=== PATIENT | female | born 1965 | race Caucasian/White ===

== ENCOUNTER → 2020-07-28 14:56 | Outpatient (CLI) | payer OTHER, SELFPAY ==
[2020-07-28 16:38] LABS: COVID19 -Nasal RAPID Negative (Negative)
== END ==
PROVIDERS: Visit Provider Nurse Practitioner
DX: Z11.59 Encounter for screening for other viral diseases (principal)
CPT/HCPCS: 87635

== ENCOUNTER 2020-07-30 06:06 | Day surgery (SDC) | payer OTHER, SELFPAY ==
[2020-07-24 08:51] VITALS: BMI 34.7
[2020-07-30] VITALS (17 sets, daily range): BP systolic 98–124; BP diastolic 45–78; PULSE 59–82; RESP 8–18; TEMP 36–36.8; O2SAT 94–99; BMI 35.6
--- NOTE | 2020-07-30 06:00 | DI.RAD.S_ITS ---
PROCEDURE: XR KNEE LT 1TO2V INDICATIONS: postoperative left knee TECHNIQUE: 2 view(s) of the knee acquired. COMPARISON: None. FINDINGS: Bones: Patient is status post knee joint arthroplasty. Hardware components are in expected positions. Visualized bony structures are intact. Soft tissues: Overlying postoperative changes are noted. IMPRESSION: Expected postoperative appearance Dictated by: Reinaldo Dobbs M.D. on 07/30/2020 at 12:11 Approved by: Reinaldo Dobbs M.D. on 07/30/2020 at 12:12
[2020-07-30] MEDS: LACTATED RINGERS 1,000 ML 42 ML IV ×2 (07:00→10:09)
[2020-07-30] MEDS: CELECOXIB 200 MG CAPSULE PO (07:03)
[2020-07-30] MEDS: PREGABALIN 75 MG CAPSULE PO (07:03)
[2020-07-30] MEDS: ACETAMINOPHEN 325 MG TABLET 975 MG PO (07:03)
--- NOTE | 2020-07-30 07:35 | PM.PREOP ---
Pre-operative Note COVID-19 COVID-19 status: Negative Result date/Date tested (Pos, Neg/Pending): 07/28/20 Interval Note History & Physical reviewed/Exam performed by Physician: Yes Changes to H&P: No H&P completed within 30 days and has changed as indicated here:: Plan for L TKA
[2020-07-30] MEDS: CEFAZOLIN 2 GM/100 ML FROZ.PIGGY IV ×2 (07:54→17:47)
--- NOTE | 2020-07-30 08:26 | PM.PROC.1 ---
Procedures Date/Time Date of procedure: 07/30/20 Time of procedure: 07:40 General Procedure description: Ultrasound guided adductor canal nerve block for post op pain control after left total knee replacement by Dr. Pemberton. Risk and benefits of procedure discussed with patient. ASA monitoring applied to patient. O2 given via nasal cannula. 2 mg Versed and 50 mcg fentanyl given for procedural sedation. Skin site was prepped with chlorhexidine and allowed to fully dry. Sterile gloves, mask, hat and probe cover were used to maintain sterility. 2% lidocaine and 30ga needle was used to make a small skin wheal at needle insertion site. Under ultrasound guidance, a 21ga 100mm Pajunk needle was directed into the adductor canal near femoral artery and saphenous nerve at the level of mid thigh. Patient reported no parasthesias. After negative aspiration, 20 mL 0.5% ropivicaine and 10mg dexamethasone were injected around saphenous nerve. Patient tolerated procedure well.
--- NOTE | 2020-07-30 08:29 | SUR.OPER ---
Supine on padded OR bed. Pillow under head, arms secured on padded armboards <90 degree abduction. Safety belt across torso. Non-operative leg secured with tape over blanket over lower leg. Operative leg controlled by surgeon. Foam padded brace at thigh of operative leg. Foam padded roll bar in place under operative leg's calf with folded bath blanket under heel to make level with roll bar.
[2020-07-30] MEDS: MORPHINE 4 MG/ML INJ INJ (08:35)
[2020-07-30] MEDS: TRANEXAMIC ACID 1,000 MG VIAL 2000 MG INJ ×2 (08:35→09:43)
[2020-07-30] MEDS: KETOROLAC 30 MG/ML VIAL IV (08:35)
[2020-07-30] MEDS: ROPIVACAINE 0.5% PF 5 MG/ML 20ML VIAL 60 ML INJ (08:36)
--- NOTE | 2020-07-30 09:59 | P.OP_ITS ---
Operative Date/Time/Diagnoses Date of procedure: 07/30/20 Time of procedure: 09:59 Pre-op diagnosis: left knee OA Post-op diagnosis: same Procedure & Clinicians Procedure: LEFT TKA Same procedure as scheduled: Yes Indications: Left knee OA resistant to further conservative care Surgeon: Piyush Pemberton Morgue Keeper: Kristin Amanda Anesthesia Type: General and Spinal Operative Notes Findings: Left knee OA with mild varus deformity Closure Type: primary Specimen(s): none sent Prosthetic devices, grafts, tissues, transplants, or devices: Richardson Nephew Journey 2 size 4 left cruciate retaining femoral component Size 4 left tibial base plate 32 mm oval button Size 3-4 left 11 mm thick Journey 2 XLPE deep dish Estimated Blood Loss (mL): 100 Tourniquet time (min): 65 Procedure in detail: Patient was met in the preoperative holding area where the site and side of surgery were marked by . Informed consent had been reviewed and signed in clinic but was also reviewed the preoperative holding area and all last minute questions were answered. Patient was then brought back in the operating room where she received a spinal anesthetic. She was induced under general anesthesia and placed supine on operating room bed. Bony prominences were well padded. The left thigh then had a nonsterile tourniquet placed. Followed by standard prepping and draping the left lower extremity. A surgical time-out was performed verifying the site and side of surgery as well as the name of the patient. A linear incision was made over the left knee in line with the long axis of the extremity. Skin incision was made with a 10. Blade followed by dissection through the fat layer with electrocautery. Medial lateral flaps were then elevated with a new 10. Blade. The medial parapatellar arthrotomy was then marked out and a medial parapatellar arthrotomy was performed with a 10. Blade. The patella was then everted Hoffa's fat pad was removed the lateral meniscus was also removed. A medial peel was then performed Paola's line was then marked with the electrocautery and a drill hole was then placed into the end of the femur approximately 1 cm anterior to PCL footprint. The drill was then used to enter the tibial canal as well. A left 5 degree cutting jig was then placed onto the left knee using intramedullary edwin. Cut was then made in the neutral position. A small portion of the medial cortex then chipped off during the bone cut this did not involve a significant portion of the MCL origin. This was then removed with electrocautery. The intramedullary guide for the tibia was then placed and drop edwin were used to verify our positioning in varus valgus. Tibia was then cut and the knee was brought into full extension and a static 10 mm spacer block was placed with full extension and good mediolateral stability. This was then removed the knee was brought back into flexion and a gap payroll human resources assistant was then used to make our drill holes for our femoral cutting jig. The payroll human resources assistant was then removed and the Sizer block was then placed sized to a size 4 and verify that we were at approximately 3? of external rotation based off this payroll human resources assistant block. Size 4 left femur cutting block was then placed on the femur and pinned in place. The 5 1 cutting block was then cut with oscillating saw at in sequential fashion. No notching occurred. The jig was then removed and the bony fragments were then also removed a size 4 femoral trial was then placed followed by size 4 tibial trial component with a 10 mm thick CR polyethylene. Knee had good balance through trial range of motion although looks like she may hyperextend a little bit with a size 10 mm thick polyethylene. The patella was then cut with a freehand saw cut and sized to a 32 mm trial. This was then placed and the knee was brought through range of motion with good patellar tracking. The trial components were then removed local anesthetic was infiltrated throughout the soft tissues of the knee. Bony fragments were then used to plug the tibial and femoral canal holes. Pulse lavage was then used to thoroughly irrigate the knee as well as the cut surfaces of the bone. Cement was then finger packed onto the cut surface of the tibia as well as finger packed into the tibial keel hole. Cement was also placed on the undersurface of the tibial component this was then malleted into place and excess cement was removed. Cement was then finger packed onto the cut surface of the femur with exception of the posterior condyle cut. Cement was placed on the feet of the femoral component this was then malleted into place and excess cement was removed. A size 10 mm thick CR trial was then placed and the knee was brought into full extension and the foot was held in internal rotation as the cement cured. Cement was then placed on the cut surface of the patella as well as between the lugs of the patellar button. This was then pressed into place and held with a clamp until fully cured. Betadine solution was then placed into the wound allowed to sit while the cement fully cured. The Betadine was then pulse lavage away with copious normal saline the tourniquet was let down the patellar clamp was removed. All excess cement was chipped away with a osteotome and mallet. We then trialed with a size 11 mm thick polyethylene which gave excellent stability as well as full extension. A size 3-4 left polyethylene with a deep dish was then selected and placed verifying the tabs were engaged both medial and laterally. The knee was then irrigated a final time electrocautery was used to gain hemostasis the medial parapatellar arthrotomy was closed using 1. Vicryl interrupted fashion followed by running Quill suture followed by a running fat suture with a 1. Vicryl followed by 2-0 Vicryl in the subcutaneous layer and 3-0 Stratafix. Dermabond was then placed as well as an Aquacel dressing. Complications: none Post-operative Condition: stable Disposition: PACU Plan for aftercare: 24 hours post-op abx, WBAT LLE, ASA 81 mg BID for 6 weeks
[2020-07-30] MEDS: METOCLOPRAMIDE 10 MG/2 ML INJ IV (10:25)
[2020-07-30] MEDS: fentaNYL 100 MCG/2 ML INJ IV (10:35)
[2020-07-30] MEDS: SCOPOLAMINE 1 PATCH TOP (10:59)
[2020-07-30] MEDS: ONDANSETRON 4 MG/2 ML INJ IV ×2 (11:00→11:45)
--- NOTE | 2020-07-30 11:16 | SUR.PHASEI ---
Report called up to floor, checo Acuna occupied at this time but able to give CHECO Rodriguez report. Pt transferred up to floor by checo Arciniega in stable condition with pain relieved to tolerable level and nausea better.
--- NOTE | 2020-07-30 11:25 | PC.NURSE ---
Day shift: Pt on unit at approx 1120. She is A&Ox3. EDISON wrap is CDI. PPP but can't wiggle toes at this time but sensation present. VS WNL. C/o nausea and not feeling well. Spouse (Tone) in room for support. Oriented to room and call light. Call light in reach. Agrees to not get OOB w/o help from staff. Bed alarm is on. No drains and no Collins.
[2020-07-30] MEDS: LACTATED RINGERS 1,000 ML 100 ML IV (11:50)
[2020-07-30] MEDS: OXYCODONE IR 10 MG TABLET PO ×3 (13:06→23:20)
[2020-07-30] MEDS: ACETAMINOPHEN 325 MG TABLET 650 MG PO ×2 (13:44→20:32)
[2020-07-30 15:27] LABS: Add Manual Diff / Slide Review NO; Basophils Absolute Auto 0 /uL (0-100); Basophils Percent Auto 0.1 % (0-2); Eosinophils Absolute Auto 0 /uL (0-450); Hemoglobin 12.9 g/dL (12.0-16.0); Lymphocytes Absolute Auto 500 /uL (1100-4500); Lymphocytes Percent Auto 4.5 % (25-40); Mean Corpuscular HGB Conc 33.1 % (30-36); Mean Corpuscular Hemoglobin 32.7 PG (26-34); Mean Corpuscular Volume 98.7 fL (80-100); Monocytes Absolute Auto 100 /uL (0-900); Monocytes Percent Auto 0.9 % (3-14); Neutrophils Absolute Auto 10500 /uL (1500-7000); Neutrophils Percent Auto 94.5 % (50-75); Platelet Count 193 X10^3/uL (150-400); Red Blood Cell Count 3.95 X10^6/uL (4.0-5.2); Red Cell Distribution Width 12.9 % (11.6-14.8); White Blood Cell Count 11.1 X10^3/uL (4.5-11.0)
--- NOTE | 2020-07-30 16:00 | PT.IIE ---
Current Diagnoses Unilateral primary osteoarthritis, left knee (07/30/20) Surgery Performed Operation Date: 07/30/20 07:45 Actual Procedures p Total Knee Arthroplasty(Left) - Piyush Pemberton MD Surgical History (Last Updated 07/23/20 @ 14:09 by Shanique Day RN) History of arthroscopy of both knees History of lumbar laminectomy (~2017) Hx of bilateral breast reduction surgery Hx of cholecystectomy Medical History (Last Updated 07/23/20 @ 14:09 by Shanique Day RN) Anxiety Depression Hypothyroidism Osteoarthritis Sciatica Physical Therapy Inpatient Evaluation/Re-Eval M1 PT/OT-IP Prior Functional Status Start: 07/30/20 12:41 Freq: NEEDED Status: Active Protocol: Document 07/30/20 15:41 DE (Rec: 07/30/20 16:20 DE [id number]) Medical Review Prior Functional Status Medical History Reviewed Yes Diet/Fluid Consistency Regular Communication WNL. No deficits noted. Able to make needs known. Mobility and Gait IND for all mobility and amb without AD or limitations at baseline. Activities of Daily Living and IADL's IND for all ADLs and IADLs including driving at baseline. Social History Household Members spouse,children Living Arrangements House Number of Floors (Floors) Two Floors Number of Stairs To Enter/Railing? 2 SULY with pillar on either side that are too far too reach at the same time. 7+7 steps inside with L railing going up. Bedroom and shower are upstairs. Home Environment Standard Height Toilet,Walk in Shower Home Equipment Crutches,Hand Held Shower,Grab Bars In Shower Employment Status Unemployed Additional Social History Comment Pt lives with spouse and 2 sons. Spouse works from home and will be available to help. Sons can help too if needed. M2 PT-IP Current Condition Start: 07/30/20 12:41 Freq: NEEDED Status: Active Protocol: Document 07/30/20 15:41 DE (Rec: 07/30/20 16:20 DE [id number]) Physical Therapy Current Condition Current Condition Evaluation Date 07/30/20 Treatment Diagnosis L TKA; Difficulty in walking Onset Date 07/30/20 Weight Bearing Status Weight Bearing Status Weight Bear as Tolerated M3 PT-IP Subjective Start: 07/30/20 12:41 Freq: NEEDED Status: Active Protocol: Document 07/30/20 15:41 DE (Rec: 07/30/20 16:20 DE [id number]) Subjective Physical Therapy Visit Type Type Initial Evaluation Visit Start Time 13:48 Visit Stop Time 14:23 Total Visit Minutes 35 Notes SPT Max led session under direct supervision of PT Michell. Number of STOKER INSTALLER Visits 0 Physical Therapy Visit Comments Patient Comments Pt is agreeable to do PT. M4 PT-IP Mobility and Gait Start: 07/30/20 12:41 Freq: NEEDED Status: Active Protocol: Document 07/30/20 15:41 DE (Rec: 07/30/20 16:20 DE [id number]) PT-Bed Mobility Assessment Supine to Sit Supine to Sit Contact Guard Assistance,Head of Bed Elevated PT-Transfer Assessment Sit to and From Stand Sit to and from Stand Contact Guard Assistance,Use of Upper Extremities Equipment Transfer Assistive Device Gait Belt,Front Wheeled Walker Orthotic/Prosthetic Devices or Brace: No Transfers Transfer Destination Chair Transfer Technique Amb with FWW Transfer Ability Level of Assist Contact Guard Assistance,Use of Upper Extremities Comments Mobility Comments Pt was inclined in bed upon arrival. Spouse was present at bedside but left the room shortly. Pt performed supine to sit on R EOB with elevated HOB and CGA. Pt demonstrated difficulty lifting her LLE off the bed and dragged her LLE across the bed. Pt performed sit to stand with FWW CGA. As soon as pt stood up, urine started to drip on the floor. Pt transferred to BSC that was placed to her L at 90 deg angle with FWW CGA. After a few minutes, pt stood up to transfer to chair but urine came out again. Pt sat back down and was cleaned while sitting on BSC. Pt assisted to don brief. Pt then stood up again and amb ~3 ft to the chair and sat down with FWW CGA. Call light placed within reach. Gait Assessment Gait Gait Assistance Required: Contact Guard Assist Distance (Feet) 3 Able to Maintain Weight Bearing Status Yes During Gait Assistive Devices Assistive Device Gait Belt,Front Wheeled Walker Orthotic/Prosthetic Devices or Brace: No Gait Deviations General Gait Pattern Antalgic,Decreased Stride Length,Decreased Feet Clearance Factors Limiting Gait Function Factors Limiting Gait Function Decreased Activity Tolerance, Decreased Sensation,Decreased Strength,Limited Range of Motion,Pain,Poor Balance Comments Gait Comments See mobility comments. Stair Climbing Assessment Comments Stair Climbing Comments Not assessed. PT-Balance Assessment Sitting Balance and Reactions Static Sitting Balance Ability Normal Dynamic Sitting Balance Ability Normal Standing Balance and Reactions Static Standing Balance Ability Good Dynamic Standing Balance Ability Good M5 PT-IP Objective Assessments Start: 07/30/20 12:41 Freq: NEEDED Status: Active Protocol: Document 07/30/20 15:41 DE (Rec: 07/30/20 16:20 DE [id number]) Orientation Orientation/Cognition Level of Alertness Alert Orientation Name,Age,Birthday,Month,Date, Year,Day of Week,Place, Situation Language Function Ability No Deficits Noted Safety Awareness Understands Safety Issues Memory Description No Deficits Noted Gross Range of Motion Lower Extremity ROM Assessment Left Impaired Impairments L knee flexion ~30-40 deg L knee extension lacking ~5-10 deg Strength Lower Extremity Strength Assessment Left Impaired Coordination Assessment Gross Coordination Gross Coordination WNL Sensation Assessment Sensation Gross Sensation Left LE Impaired Light Touch Impaired Comments Sensation Comments Pt reports less sensation on LLE compared to her RLE. Muscle Tone Muscle Tone WNL Yes M6 PT-IP Treatment Start: 07/30/20 12:41 Freq: NEEDED Status: Active Protocol: Document 07/30/20 15:41 DE (Rec: 07/30/20 16:20 DE [id number]) Physical Therapy Treatment Exercises Exercises Gluteal Sets,Quad Sets,Heel Slides Education Education Provided Weight Bearing Status,Post-Op Packet,Safety Other Treatments Other Treatment Performed Provided education on knee ROM exercises, safety, plan of care, and role of PT. M7 PT-IP Assessment and Plan Start: 07/30/20 12:41 Freq: NEEDED Status: Active Protocol: Document 07/30/20 15:41 DE (Rec: 07/30/20 16:20 MT [id number]) PT Summary Assessment and Plan Potential Rehabilitation Potential Good Status of Condition at Evaluation Evolving Summary Impairments Pain,ROM,Strength,Balance, Sensation,Bed Mobility, Transfers,Gait,Activity Tolerance Assessment Summary Jammie is a 55 yo female POD0 s /p L TKA. At baseline, pt is IND for all mobility, amb, ADLs without AD or limitations . On evaluation, pt requires CGA for supine to sit and sit <> stand with use of FWW. L knee flexion is limited to ~30 -40 deg but L knee extension only lacks ~5-10 deg in supine . Pt is not safe for d/c home at this time. Pt will need to improve activity tolerance and perform 7 steps with L railing going up before d/c. PT anticipates pt will be safe to d/c home with assistance once medically cleared. Pt will benefit from outpatient PT to improve knee ROM and strength. Pt requesting FWW for home use. PT communicated request to CM. Goals Bed Mobility Goal Standby Assistance Transfer Goal Standby Assistance,Front Wheeled Walker Gait Goal Standby Assistance,Front Wheel Walker Gait Distance 200 Other Goals Pt will perform 7 steps up and down with L railing going up with SBA. Days to Meet Goals 3 Frequency of Treatment Frequency Of Treatment Twice a Day Treatment Plan Physical Therapy Treatment Plan Bed Mobility Training,Transfer Training,Gait Training, Therapeutic Exercise,Balance Retraining,Post Op Education, Discharge Planning,Hot or Cold Pack,Neuromuscular Re-ed Recommendations To Nursing Amount of Assist Needed 1 Person Assist Discharge Recommendations PT Discharge Recommendations Home with Assistance, Outpatient PT Equipment Needed for Home Before FWW Discharge Transportation Needs at Discharge Private Vehicle Treatment was provided by Max Reyes, SPT and supervised by Michell Sandy, PT. I personally reviewed this note and agree with its contents.
[2020-07-30] MEDS: DOCUSATE 100 MG CAPSULE PO (20:31)
[2020-07-30] MEDS: ASPIRIN EC 81 MG TABLET PO (20:31)
[2020-07-30] MEDS: GABAPENTIN 600 MG TABLET PO (20:32)
[2020-07-30] MEDS: PRAMIPEXOLE 0.125 MG TABLET PO (20:34)
--- NOTE | 2020-07-30 22:11 | PC.NURSE ---
Pt has had relatively uneventful evening. Med @ 1742 w/good relief. Aquacell Dsg to left knee CDI. Assisted to BR w/o incidence. IVF of LR infusing @ 100cc/hr via pump into LFA w/o incidence. Stable post op course. Pt hoping to D/C home in am. Call light w/in reach, bed alarm on for pt safety. Continue w/plan of care.
[2020-07-31] MEDS: CEFAZOLIN 2 GM/100 ML FROZ.PIGGY IV (01:55)
[2020-07-31 05:00] VITALS: BP 98/58; PULSE 56; RESP 18; TEMP 36.5; O2SAT 97
[2020-07-31] MEDS: LEVOTHYROXINE 125 MCG TABLET PO (05:33)
[2020-07-31 05:52] LABS: Hematocrit 36.6 % (36-46); Hemoglobin 12.2 g/dL (12.0-16.0)
[2020-07-31 07:35] VITALS: PULSE 68; RESP 16; O2SAT 98
[2020-07-31 07:55] VITALS: BP 101/67; PULSE 56; RESP 16; TEMP 36.4; O2SAT 98
[2020-07-31] MEDS: DOCUSATE 100 MG CAPSULE PO (08:04)
[2020-07-31] MEDS: ACETAMINOPHEN 325 MG TABLET 650 MG PO (08:04)
[2020-07-31] MEDS: ASPIRIN EC 81 MG TABLET PO (08:04)
[2020-07-31] MEDS: GABAPENTIN 600 MG TABLET PO (08:04)
[2020-07-31] MEDS: OXYCODONE IR 10 MG TABLET PO ×2 (08:04→10:47)
[2020-07-31] MEDS: polyethylene glycoL 3350 17 GM POWD.PACK PO (08:04)
[2020-07-31] MEDS: buPROPion XL 150 MG TAB 300 MG PO (08:05)
--- NOTE | 2020-07-31 08:46 | PM.PN.1 ---
Subjective Subjective Date Patient Seen: 07/31/20 Time Patient Seen: 08:46 Interval history: Patient is POD#1 s/p Left TKA with Dr. Pemberton. Doing well postoperatively. Pain has been controlled with Oxycodone. She has mobilized about the room and with PT. She is tolerating a diet. Voiding appropriately. No chest pain or shortness of breath. No complaints. Exam Vital Signs (past 8 hours): - 07/31/20 05:00 07/31/20 07:35 07/31/20 07:55 Temperature 97.7 F 97.6 F Pulse Rate 56 L 68 56 L Respiratory Rate 18 16 16 Blood Pressure 98/58 L 101/67 Pulse Oximetry 97 98 98 Oxygen Delivery Method Room Air Oxygen Flow Rate 0 Narrative Exam Narrative: 55 year old female resting in bed, alert and oriented in no acute distress. Aquacel dressing in place over left knee is CDI. Patient able to flex and extend the knee and ankle. Calves are soft, nontender bilaterally. Palpable pedal pulse. Objective Labs Result Diagrams: 07/31/20 05:20 Labs: Laboratory Results - last 24 hr 07/30/20 07/31/20 15:11 05:20 WBC 11.1 H RBC 3.95 L Hgb 12.9 12.2 Hct 39.0 36.6 MCV 98.7 MCH 32.7 MCHC 33.1 RDW 12.9 Plt Count 193 Neut % (Auto) 94.5 H Lymph % (Auto) 4.5 L [place] % (Auto) 0.9 L Eos % (Auto) 0.0 L Baso % (Auto) 0.1 Neut # (Auto) 96199 H Lymph # (Auto) 500 L [place] # (Auto) 100 Eos # (Auto) 0 Baso # (Auto) 0 PFSH Medical History Anxiety Depression Hypothyroidism Osteoarthritis Sciatica Surgical History History of arthroscopy of both knees History of lumbar laminectomy (~2017) Hx of bilateral breast reduction surgery Hx of cholecystectomy Social History household members: spouse and children Smoking Status: Never smoker alcohol intake: current Assessment & Plan Assessment & Plan narrative: -Patient is POD#1 s/p total knee arthoplasty and is doing well. -Continue to work with PT. She has 2 steps to enter home and 7 steps to upstairs, however patient is able to remain on ground floor and does not need to complete 7 steps prior to discharge. 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 -ASA 81mg BID for DVT prophylaxis. Prescription of oxycodone provided at discharge for postop pain. -Discharge to home later today. -Follow up outpatient in 2 weeks.
--- NOTE | 2020-07-31 10:22 | PT.IPTN ---
Current Diagnoses Unilateral primary osteoarthritis, left knee (07/30/20) Surgery Performed Operation Date: 07/30/20 07:45 Actual Procedures p Total Knee Arthroplasty(Left) - Piyush Pemberton MD Physical Therapy Treatment Note M2 PT-IP Current Condition Start: 07/30/20 12:41 Freq: NEEDED Status: Discharge Protocol: Document 07/30/20 15:41 DE (Rec: 07/30/20 16:20 DE [id number]) Physical Therapy Current Condition Current Condition Evaluation Date 07/30/20 Treatment Diagnosis L TKA; Difficulty in walking Onset Date 07/30/20 Weight Bearing Status Weight Bearing Status Weight Bear as Tolerated M3 PT-IP Subjective Start: 07/30/20 12:41 Freq: NEEDED Status: Discharge Protocol: Document 07/31/20 09:54 CLB (Rec: 07/31/20 12:48 CLB [id number]) Subjective Physical Therapy Visit Type Type Treatment Note Visit Start Time 09:54 Visit Stop Time 10:22 Total Visit Minutes 28 Notes present during tx. Number of SAMPLE CLERK Visits 1 Physical Therapy Visit Comments Patient Comments Pt is agreeable to do PT. Therapy Pain Assessment Pain When Pain Assessed During Mobility Pain Present Pain Present Pain Reported Location knee Intensity 2 Scale Used Numeric (0 - 10) Description Tightness Pain Management Techniques Apply Cold,Modification of Treatment M4 PT-IP Mobility and Gait Start: 07/30/20 12:41 Freq: NEEDED Status: Discharge Protocol: Document 07/31/20 09:54 CLB (Rec: 07/31/20 12:48 CLB [id number]) PT-Bed Mobility Assessment Supine to Sit Supine to Sit Standby Assistance Sit to Supine Sit to Supine Standby Assistance Scooting Scooting to Edge of Bed Standby Assistance PT-Transfer Assessment Sit to and From Stand Sit to and from Stand Standby Assistance,Use of Upper Extremities Equipment Transfer Assistive Device Gait Belt,Front Wheeled Walker Orthotic/Prosthetic Devices or Brace: No Transfers Transfer Destination Bed,Chair Transfer Technique Amb with FWW Transfer Ability Level of Assist Standby Assistance,Use of Upper Extremities Comments Mobility Comments Pt in bed upon arrival. Pt performed therapeutic exercises in bed. Pt then performed bed mobility SBA, stood SBA and ambulated w/FWW/ SBA to stairs. Pt climbed three stairs x2 with L ascending rail SBA. Pt then ambulated around [facility]. ~210ft w/FWW/SBA with cues for heel strike and equal step length. Pt able to ambulate w/o increase in pain. Pt returned to room requiring SBA for sit-supine. Left pt in bed with all needs within reach and present. Dispensed FWW to pt. Gait Assessment Gait Gait Assistance Required: Standby Assistance Distance (Feet) 230 Able to Maintain Weight Bearing Status Yes During Gait Assistive Devices Assistive Device Gait Belt,Front Wheeled Walker Orthotic/Prosthetic Devices or Brace: No Gait Deviations General Gait Pattern Antalgic,Decreased Stride Length,Decreased Feet Clearance Factors Limiting Gait Function Factors Limiting Gait Function Decreased Activity Tolerance, Decreased Sensation,Decreased Strength,Limited Range of Motion,Pain,Poor Balance Comments Gait Comments See mobility comments. Stair Climbing Assessment Evaluation Level of Assist On Stairs Standby Assistance Devices Stair Climbing Assistive Devices Left Railing Technique/Endurance Stair Climbing Direction Ascend and Descend Stair Climbing Technique Step to Step Number of Steps Climbed 2 Stair Climbing Set # Repetitions (reps) 2 Comments Stair Climbing Comments Pt able to ascend/descend stairs SBA with step to step and L ascending rail. M5 PT-IP Objective Assessments Start: 07/30/20 12:41 Freq: NEEDED Status: Discharge Protocol: Document 07/30/20 15:41 DE (Rec: 07/30/20 16:20 DE [id number]) Orientation Orientation/Cognition Level of Alertness Alert Orientation Name,Age,Birthday,Month,Date, Year,Day of Week,Place, Situation Language Function Ability No Deficits Noted Safety Awareness Understands Safety Issues Memory Description No Deficits Noted Gross Range of Motion Lower Extremity ROM Assessment Left Impaired Impairments L knee flexion ~30-40 deg L knee extension lacking ~5-10 deg Strength Lower Extremity Strength Assessment Left Impaired Coordination Assessment Gross Coordination Gross Coordination WNL Sensation Assessment Sensation Gross Sensation Left LE Impaired Light Touch Impaired Comments Sensation Comments Pt reports less sensation on LLE compared to her RLE. Muscle Tone Muscle Tone WNL Yes M6 PT-IP Treatment Start: 07/30/20 12:41 Freq: NEEDED Status: Discharge Protocol: Document 07/31/20 09:54 CLB (Rec: 07/31/20 12:48 CLB [id number]) Physical Therapy Treatment Exercises Exercises Ankle Pumps,Gluteal Sets,Quad Sets,Heel Slides,Straight Leg Raises,Short Arc Quads Education Education Provided Weight Bearing Status,Post-Op Packet,Safety Other Treatments Other Treatment Performed seated HS M7 PT-IP Assessment and Plan Start: 07/30/20 12:41 Freq: NEEDED Status: Discharge Protocol: Document 07/31/20 09:54 CLB (Rec: 07/31/20 12:48 CLB [id number]) PT Summary Assessment and Plan Potential Rehabilitation Potential Good Status of Condition at Evaluation Evolving Summary Impairments Pain,ROM,Strength,Balance, Sensation,Bed Mobility, Transfers,Gait,Activity Tolerance Assessment Summary Pt improved with all functional mobility and ther ex. Pt was able to ambulated ~ 230ft w/FWW/SBA and climb stairs SBA with left rail. Pt is able to perform all bed mobility SBA. Pt with good pain control and stated she feels better today w/o weakness. Goals Bed Mobility Goal Standby Assistance Transfer Goal Standby Assistance,Front Wheeled Walker Gait Goal Standby Assistance,Front Wheel Walker Gait Distance 200 Other Goals Pt will perform 7 steps up and down with L railing going up with SBA. Days to Meet Goals 3 Frequency of Treatment Frequency Of Treatment Twice a Day Treatment Plan Physical Therapy Treatment Plan Bed Mobility Training,Transfer Training,Gait Training, Therapeutic Exercise,Balance Retraining,Post Op Education, Discharge Planning,Hot or Cold Pack,Neuromuscular Re-ed Recommendations To Nursing Amount of Assist Needed 1 Person Assist Discharge Recommendations PT Discharge Recommendations Home with Assistance, Outpatient PT Equipment Needed for Home Before dispensed FWW Discharge Transportation Needs at Discharge Private Vehicle
--- NOTE | 2020-07-31 11:15 | PC.NURSE ---
Day shift: Paperwork signed and all questions answered. Pt has MD scripts and all personal belongings. [place] remains CDI. CMS intact and PPP. Pt taken to car driven by her spouse Tone by JM Nolasco. Medicated for knee pain prior to d/c for car ride home. Left AC unit at approx 1125.
--- NOTE | 2020-07-31 12:35 | CM.DANOTE ---
DCP: Case received, EMR reviewed and met with patient. Introduced self and role. Was able to obtain information from patient regarding her baseline activity status and living situation prior to her having surgery. DCP assessment completed with information currently available. Patient is a 55 year old female who admitted yesterday morning to the care of the orthopedic team. PCP: Dr. Perera. Payer: confirmed: [employer]ita Reza. Patient came to the hospital for a surgical procedure. She had left total knee arthroplasty. Patient has history of osteoarthritis of her left knee. Met with patient in her room. She is pleasant, alert and oriented. She resides in [facility] with her spouse and adult sons. She conformed that her spouse works from home, and can assist, as well as her sons. Went ahead and ordered her a FWW walker for home use. She is independent at baseline. She mentioned that she oes have 14 stairs to navigate, but can stay downstairs if needed. She is also set up for outpatient P.T. at [facility]. P: Patient is to be discharged home today, after working with P.T., and will be going home with a FWW. Heidi Floyd RN/Paste [employer]
== END 2020-07-31 11:17 | disposition home or self-care (01) ==
LOC: OR 06:10 → AC 08:46
PROVIDERS: PCP Family Medicine Sports Medicine; Referring Provider Family Medicine Sports Medicine; Visit Provider Orthopaedic Surgery Adult Reconstructive Orthopaedic Surgery
PROC: 0SRD0JZ Replacement of Left Knee Joint with Synthetic Substitute, Open Approach (ICD-10-PCS; CPT 27447; principal; 2020-07-30 07:45)
DX: M17.12 Unilateral primary osteoarthritis, left knee (principal); E66.9 Obesity, unspecified; Z68.34 Body mass index [BMI] 34.0-34.9, adult; E03.9 Hypothyroidism, unspecified; G25.81 Restless legs syndrome; M21.162 Varus deformity, not elsewhere classified, left knee
CPT/HCPCS: 27447; 36415; 73560; 85014; 85018; 85025; 94762; 97110; 97116; 97161; C1776; J0690; J1100; J1885; J2250; J2270; J2405; J2704; J2765; J3010